=== PATIENT | male | born 1955 | race Asian ===

== ENCOUNTER 2022-02-18 14:00 | Emergency (ER) | payer BC ==
[~2022-02-18] VITALS: Ht 172.7 cm; Wt 82.0 kg
[~2022-02-18 14:00] MED LIST: METF500T PO
[2022-02-18] MEDS ORDERED: AMLO-383 PO (14:09)
[2022-02-18] MEDS ORDERED: LEVO75 PO (14:09)
[2022-02-18] MEDS ORDERED: ATOR-2 PO (14:09)
[2022-02-18] MEDS ORDERED: DULA4.5P SQ (14:09)
[2022-02-18] MEDS ORDERED: DAPA10TA PO (14:09)
[2022-02-18] MEDS ORDERED: SPIR-37 PO (14:09)
[2022-02-18] MEDS ORDERED: METF-446 PO (14:09)
[2022-02-18 15:27] VITALS: BP 142/95
== END 2022-02-18 15:35 | disposition home or self-care (01) ==
LOC: EMS 14:03
DX: S83.91XA Sprain of unspecified site of right knee, initial encounter (principal); E11.9 Type 2 diabetes mellitus without complications; E03.9 Hypothyroidism, unspecified; E78.00 Pure hypercholesterolemia, unspecified; I10 Essential (primary) hypertension; X58.XXXA Exposure to other specified factors, initial encounter; Y93.89 Activity, other specified; Y92.89 Other specified places as the place of occurrence of the external cause; Y99.8 Other external cause status
CPT/HCPCS: 82962; 99283

== ENCOUNTER 2023-11-23 06:36 | Emergency (ER) | payer BC ==
[~2023-11-23 06:36] MED LIST changes: +AMLO-383 PO; +ATOR-2 PO; +DAPA10TA PO; +DULA4.5P SQ; +LEVO75 PO; +METF-446 PO; -METF500T PO; +SPIR-37 PO
[2023-11-23] MEDS ORDERED: EPINEPHrine 1:10,000 [1 MG/10 ML] SYRINGE IVP ONE (06:38)
== END 2023-11-23 09:16 ==
LOC: EMS 06:37
DX: I46.9 Cardiac arrest, cause unspecified (principal); E11.9 Type 2 diabetes mellitus without complications; E78.00 Pure hypercholesterolemia, unspecified; I10 Essential (primary) hypertension; E03.9 Hypothyroidism, unspecified; Z87.891 Personal history of nicotine dependence
CPT/HCPCS: 99285; 92950; J0171